=== PATIENT | male | born 1970 | race Caucasian/White ===

== ENCOUNTER 2020-12-28 11:49 | Emergency (ER) | payer BC, OTHER ==
[~2020-12-28] VITALS: Ht 167.6 cm; Wt 73.9 kg
[2020-12-28 12:09] VITALS: BP 151/107
[2020-12-28] MEDS ORDERED: AZIT250T PO (12:16)
--- NOTE | 2020-12-28 12:22 | NUR ---
Patient discharged to home in stable condition. Written and verbal after care instructions given. Patient verbalizes understanding of instruction.
== END 2020-12-28 12:22 | disposition home or self-care (01) ==
LOC: ER 11:49
DX: J02.9 Acute pharyngitis, unspecified (principal)